=== PATIENT | female | born 1950 | race Caucasian/White ===

== ENCOUNTER 2025-07-23 07:46 | Day surgery (SDC) | payer MEDICARE, OTHER, MEDICAID, SELFPAY ==
--- OUTSIDE RECORDS SUMMARY | 2025-06-17 07:20 | XMS_ITS ---
Author Organization [facility] Address [address] [place] [address] Care Team Providers Care Basketball Player Name Role Phone Jasper Kruse Primary Care Provider Akshat Alcazar Jr Unavailable Allergies Allergen (clinical drug ingredient) Drug/Non Drug Allergy documented on EMR Reaction Allergy Type Onset Date Status sulfacetamide Sulfacetamide Sodium Unknown Drug Allergy Active REASON FOR VISIT Patient presents today for colitis Medications Medication SIG (Take, Route, Frequency, Duration) Notes Start Date End Date Status Omeprazole 20 MG 1 capsule 30 minutes before morning meal Orally twice a day Active Melatonin 3 MG 1 tablet at bedtime as needed Orally Once a day for 30 day(s) Active Restasis 0.05 % 1 drop into affected eye Ophthalmic Twice a day Active Atorvastatin Calcium 20 MG 1 tablet Oral ly Once a day for 30 day(s) Active Caltrate 600+D3 600-800 MG-UNIT 1 tablet with a meal Orally Once a day for 30 day(s) Active Isosorbide Mononitrate ER 30 MG 1 tablet in the morning Orally Once a day for 30 day(s) Active Farxiga 10 MG 1 tablet Orally Once a day for 30 day(s) Active Aspirin 81 81 MG 1 tablet Orally Once a day for 30 day(s) Active Losartan Potassium 25 MG 1 tablet Orally Once a day for 30 day(s) Active Mounjaro 7.5 MG/0.5ML as directed Subcutaneous Active Social History Tobacco Use: Social History Observation Description Date Details (start date - stop date) Never Smoker NA - NA Tobacco Use/Smoking Question Answer Notes Patient is a nonsmoker Alcohol Screen Question Answer Notes Did you have a drink containing alcohol in the p ast year? No Points 0 Interpretation Negative Problems Problem Type SNOMED Code ICD Code Onset Dates Problem Status W/U Status Risk Notes Problem Colitis (58936652) Colitis (K52.9) Active confirmed Problem Long-term current use of drug therapy (913390538) termination clerk (current) use of oral hypoglycemic drugs (Z79.84) Active confirmed Problem History of adenomatous polyp of colon (860421858) History of adenomatous polyp of colon (Z86.0101) Active confirmed Vital Signs Temperature 97.4 degrees Fahrenheit 06/17/20 25 Blood pressure systolic 001 mm Hg 06/17/20 25 Blood pressure diastolic 01 mm Hg 025 Heart Rate 68 /min 06/17/2025 Height 62 in 06/17/2025 Weight 127.2 lbs 06/17/2025 BMI 23.26 kg/m2 06/17/2025 Encounters Encounter Location Date Provider Diagnosis [facility] [address] [place] [address] 06/17/2025 Akshat Mi Jr Gastroesophageal reflux disease without esophagitis K21.9 ; Colitis K52.9 ; termination clerk (current) use of oral hypoglycemic drugs Z79.84 and History of adenomatous polyp of colon Z86.0101 Assessments Encounter Date Diagnosis (ICD Code) Assessment Notes Treatment Notes Treatment Clinical Notes Section Notes 06/17/2025 Gastroesophageal reflux disease without esophagitis (ICD-10 - K21.9) We discussed her symptoms today. We recommended she complete her antibiotic therapy as prescribed. We reviewed her CAT scan results. We discussed further evaluation of her upper and lower GI symptoms. She will have upper endoscopy and colonoscopy. She is aware of risks and benefits and agrees to proceed. Aspirin and Mounjaro will be stopped 1 week before the procedure. She will stop Farxiga 3 days before the procedure.Rebeka valdez's visit was 30 minutes. 06/17/2025 Colitis (ICD-10 - K52.9) We discussed her symptoms today. We recommended she complete her antibiotic therapy as prescribed. We reviewed her CAT scan results. We discussed further evaluation of her upper and lower GI symptoms. She will have upper endoscopy and colonoscopy. She is aware of risks and benefits and agrees to proceed. Aspirin and Mounjaro will be stopped 1 week before the procedure. She will stop Farxiga 3 days before the procedure.Rebeka valdez's visit was 30 minutes. 06/17/2025 termination clerk (current) use of oral hypoglycemic drugs (ICD-10 - Z79.84) We discussed her symptoms today. We recommended she complete her antibiotic therapy as prescribed. We reviewed her CAT scan results. We discussed further evaluation of her upper and lower GI symptoms. She will have upper endoscopy and colonoscopy. She is aware of risks and benefits and agrees to proceed. Aspirin and Mounjaro will be stopped 1 week before the procedure. She will stop Farxiga 3 days before the procedure.Rebeka valdez's visit was 30 minutes. 06/17/2025 History of adenomatous polyp of colon (ICD-10 - Z86.0101) We discussed her symptoms today. We recommended she complete her antibiotic therapy as prescribed. We reviewed her CAT scan results. We discussed further evaluation of her upper and lower GI symptoms. She will have upper endoscopy and colonoscopy. She is aware of risks and benefits and agrees to proceed. Aspirin and Mounjaro will be stopped 1 week before the procedure. She will stop Farxiga 3 days before the procedure.Rebeka valdez's visit was 30 minutes. Plan Of Treatment Future Test Test Name Order Date UPPER GI ENDOSCOPY 06/17/2025 COLONOSCOPY 06/17/2025 Next Appt Details Follow Up: 1 Year, Reason: Provider Name:Akshat meng , 07/23/2025 09:20:00 AM, [address] [place] [address], [id number], Progress Notes * BOOGIE FLOREZJIMOB: (75 yo F)Acc No.[id number]:06/17/2025 Progress Notes Patient: BOOGIE SIMENTALARMOND Provider: Demetrio Mi MD :1950 A ge:75 Y S ex:Female Date:06/17/2025 Address:[address] [place], [place] [id number] Pcp:Jasper Kruse Subjective: * Chief Complaints: * 1 . Patient presents today for colitis. * HPI: N ew symptom(s): Lashanda is a pleasant 75-year-old woman seen today in follow-up. She was last seen in July of last year for follow-up of reflux disease, elevated LFTs, and fatty liver. She was doing well until earlier last month when she developed epigastric pain with nausea and vomiting as well as diarrhea. She also had a fever. She reports some rectal bleeding with the diarrhea. She denies any recent travel, suspect food ingestions, or ill contacts. She was seen in the emergency department at [place] on June 07. She was diagnosed with descending colitis. Cipro and Flagyl were prescribed, and she is finishing these. She was also seen at [facility] for recurrent symptoms and treated symptomatically. She denies any prior history of colitis. Her last colonoscopy in 2000 was remarkable for tubular adenoma and 5-year follow-up was recommended. We reviewed this today. She has also had some upper GI symptoms despite omeprazole 20 mg daily with a raw feeling in the throat area. ENT evaluation was done and records are not available. * Medical History: D iabetes type 2, Fatty liver, Hypertension, ANA/CPAP, Brain aneurysm, Gastroesophageal reflux disease, EGD 12/15/20, no Ramsey's esophagus or H. pylori., Colonoscopy 12/15/20, tubular adenoma, five-year followup, Coronary artery disease, noncritical, medical management. * Surgical History: c ryosurgery , urethral sling , augmentation mammoplasty . * Hospitalization/Major Diagno stic Procedure: D enies Past Hospitalization. * Family History: F ather: , diagnosed with Heart disease. M other: , diagnosed with Diabetes. S iblings: sister breast cancer, diagnosed with Diabetes, Heart disease. no known hx of colon cancer. No family history of liver cancer. * Social History: T obacco Use: T obacco Use/Smoking P atient is a n onsmoker. D rugs/Alcohol: A lcohol Screen D id you have a drink containing alcohol in the past year? N o, P oints 0 , I nterpretation N egative. M iscellaneous: M arital status: . Occupation: retired. * Medications: T aking Aspirin 81 81 MG Tablet Delayed Release 1 tablet Orally Once a day , Taking Losartan Potassium 25 MG Tablet 1 tablet Orally Once a day , Taking Isosorbide Mononitrate ER 30 MG Tablet Extended Release 24 Hour 1 tablet in the morning Orally Once a day , Taking Farxiga 10 MG Tablet 1 tablet Orally Once a day , Taking Mounjaro 7.5 MG/0.5ML Solution Pen-injector as directed Subcutaneous , Taking Caltrate 600+D3 600-800 MG-UNIT Tablet 1 tablet with a meal Orally Once a day , Taking Restasis 0.05 % Emulsion 1 drop into affected eye Ophthalmic Twice a day , Taking Atorvastatin Calcium 20 MG Tablet 1 tablet Orally Once a day , Taking Omeprazole 20 MG Capsule Delayed Release 1 capsule 30 minutes before morning meal Orally twice a day , Taking Melatonin 3 MG Tablet 1 tablet at bedtime as needed Orally Once a day , Medication List reviewed and reconciled with the patient * Allergies: S ulfacetamide Sodium. Objective: * Vitals: W t:127.2lbs, Ht: 62 in, BMI: 23.26 Index, BP:001/01mm Hg, HR:68/min, Temp:97.4, Wt-k.7. * Examination: G eneral Examination: O n examination today, she appears well. Skin is anicteric. Lungs are clear. Heart shows a regular rate and rhythm. Abdomen is soft without focal masses or tenderness. Extremities are without edema. Assessment: * Assessment: 1. G astroesophageal reflux disease without esophagitis - K21.9 (Primary) 2 .?Colitis - K52.9 3 . L ericka term (current) use of oral hypoglycemic drugs - Z79.84 4 . H istory of adenomatous polyp of colon - Z86.0101 We discussed her symptoms to day. We recommended she complete her antibiotic therapy as prescribed. We reviewed her CAT scan results. We discussed further evaluation of her upper and lower GI symptoms. She will have upper endoscopy and colonoscopy. She is aware of risks and benefits and agrees to proceed. Aspirin and Mounjaro will be stopped 1 week before the procedure. She will stop Farxiga 3 days before the procedure.Today's visit was 30 minutes. Plan: * Treatment: ?Procedure: COLONOSCOPY (Ordered for 06/17/2025)* sched for 07/23/25 at 9:20 a mmacmirlax 2.?Colitis?Procedure: UPPER GI ENDOSCOPY (Ordered for 06/17/2025)* sched for 07/23/25 at 9:20 a mma ?Procedure: COLONOSCOPY (Ordered for 06/17/2025)* sched for 07/23/25 at 9:20 a mmacmirlax * Procedure Codes: 3 017F COLORECTAL CA SCREEN DOC REV, G9903 Pt scrn tbco id as non user, G9744 PATIENT NOT ELIG D/T ACTIVE DX HTN * Follow Up: 1 Year * * Sign off status: Completed true * Provider: Demetrio Mi MD Date: 0 06/17/2025 Generated for Printi ng/Fajohnathong/eTransmitting on: 0 06/19/2025 04:37 PM EDT History and Physical Notes * HPI (History of Present Illness) Category Sub-Category Detail Notes Category Not es New symptom(s) Lashanda is a pleasant 75-year-old woman seen today in follow-up. She was last seen in July of last year for follow-up of reflux disease, elevated LFTs, and fatty liver. She was doing well until earlier last month when she developed epigastric pain with nausea and vomiting as well as diarrhea. She also had a fever. She reports some rectal bleeding with the diarrhea. She denies any recent travel, suspect food ingestions, or ill contacts. She was seen in the emergency department at [place] on June 07. She was diagnosed with descending colitis. Cipro and Flagyl were prescribed, and she is finishing these. She was also seen at [facility] for recurrent symptoms and treated symptomatically. She denies any prior history of colitis. Her last colonoscopy in 2000 was remarkable for tubular adenoma and 5-year follow-up was recommended. We reviewed this today. She has also had some upper GI symptoms despite omeprazole 20 mg daily with a raw feeling in the throat area. ENT evaluation was done and records are not available. Examination Category Sub-Category Detail Notes Category Not es General Examination On exami nation today, she appears well. Skin is anicteric. Lungs are clear. Heart shows a regular rate and rhythm. Abdomen is soft without focal masses or tenderness. Extremities are without edema.
--- OUTSIDE RECORDS SUMMARY | 2025-06-19 16:37 | XMS_ITS | Patient Health Record ---
Author Organization [facility] Address [address] [place] [phone] Care Team Providers Care Nursing Consultant Name Role Phone Jasper Kruse Primary Care Provider Akshat Alcazar Jr Unavailable Allergies Allergen (clinical drug ingredient) Drug/Non Drug Allergy documented on EMR Reaction Allergy Type Onset Date Status sulfacetamide Sulfacetamide Sodium Unknown Drug Allergy Active Reason For Referral No Information Medications Medication SIG (Take, Route, Frequency, Duration) Notes Start Date End Date Status Isosorbide Mononitrate ER 30 MG 1 tablet in the morning Orally Once a day for 30 day(s) Active Farxiga 10 MG 1 tablet Orally Once a day for 30 day(s) Active Aspirin 81 81 MG 1 tablet Orally Once a day for 30 day(s) Active Losartan Potassium 25 MG 1 tablet Orally Once a day for 30 day(s) Active Omeprazole 20 MG 1 capsule 30 minutes [...] Mounjaro 7.5 MG/0.5ML as directed Subcutaneous Active Caltrate 600+D3 600-800 MG-UNIT 1 tablet with a meal Orally Once a day for 30 day(s) Active Immunizations Vaccine Route Administration Date Status Comme nts Influenza Unknown 07/10/2020 Administered Influenza Unknown 08/06/2021 Administered Influenza Unknown 07/27/2022 Administered Influenza Unknown 07/16/2024 Refused Social History Tobacco Use: Social History Observation [...] Problem Status W/U Status Risk Notes Problem 729369158 Elevated LFTs (R79.89) Active confirmed Problem 978491155 Gastroesophageal reflux disease without esophagitis (K21.9) Active confirmed Problem 759872302 Fatty liver (K76.0) Active confirmed Problem Colitis (95422185) Colitis (K52.9) Active confirmed Problem 072209671 Abnormal finding s in stool (R19.5) Active confirmed Problem 514470408 Abdominal pain, left upper quadrant (R10.12) Active confirmed Problem Long-term current use of drug therapy (750068747) intermediate (current) use of oral hypoglycemic drugs (Z79.84) Active confirmed Problem History of adenomatous polyp of colon (058127294) History of adenomatous polyp of colon (Z86.0101) Active confirmed Vital Signs Heart Rate 68 /min 06/17/2025 Temperature 97.4 degrees Fahrenheit 06/17/2025 Blood pressure diastolic 01 mm Hg 06/17/2025 Height 62 in 06/17/2025 Blood pressure systolic 001 mm Hg 06/17/2025 Weight 127.2 lbs 06/17/2025 BMI 23.26 kg/m2 06/17/2025 Encounters Encounter Location Date Provider Diagnosis [facility] [address] [place] [phone] 07/16/2024 Akshat Mi Jr Fatty liver K76.0 and Gastroesophageal reflux disease without esophagitis K21.9 [facility] [address] [place] [address] 06/17/2025 Akshat Mi Jr Gastroesophageal reflux disease without esophagitis K21.9 ; Colitis K52.9 ; intermediate (current) use of oral hypoglycemic drugs Z79.84 and History of adenomatous polyp of colon Z86.0101 [facility] [address] [place] [phone] 06/11/2025 Akshat Mi Jr Assessments Encounter Date Diagnosis (ICD Code) Assessment Notes Treatment Notes Treatment Clinical Notes Section Notes 07/16/2024 Gastroesophageal reflux disease without esophagitis (ICD-10 - K21.9) Currently, she is doing well. We discussed the natural history fatty liver today. We discussed diet, weight loss, and lifestyle modifications for control both fatty liver and gastroesophageal reflux disease. She currently appears to be doing quite well, and followup will be in one year. 07/16/2024 Fatty liver (ICD-10 - K76.0) Butter margarine and cooking oils material was printed Currently, she is doing well. We discussed the natural history fatty liver today. We discussed diet, weight loss, and lifestyle modifications for control both fatty liver and gastroesophageal reflux disease. She currently appears to be doing quite well, and followup will be in one year. 06/17/2025 Gastroesophageal reflux disease without esophagitis (ICD-10 - K21.9) We discussed he r symptoms today. We recommended she complete her [...] before the procedure.Today's visit was 30 minutes. 06/17/2025 Colitis (ICD-10 [...] before the procedure.Today's visit was 30 minutes. 06/17/2025 intermediate (current) use of oral hypoglycemic drugs (ICD-10 - Z79.84) We discussed h er symptoms today. We recommended she complete her [...] before the procedure.Today's visit was 30 minutes. 06/17/2025 History of [...] before the procedure.Today's visit was 30 minutes. Plan Of Treatment Pending Test Test Name Order Date LIVER PROFILE 11/23/2021 LIVER PROFILE 07/14/2022 LIVER PROFILE 01/21/2022 IRON + IBC (FE) 07/14/2022 FERRITIN 07/14/2022 CBC w/o DIFF 07/14/2022 PROTHROMBIN TIME (PT, INR) 07/14/2022 MITOCHONDRIAL AB 07/14/2022 SMOOTH MUSCLE ANTIBODIES 07/14/2022 MADELIN Reflex Titer and Pattern 07/14/2022 Hepatitis A,B,C Profile 07/14/2022 Future Test Test Name Order Date UPPER GI ENDOSCOPY 11/20/2020 COLONOSCOPY 11/20/2020 UPPER GI ENDOSCOPY 06/17/2025 COLONOSCOPY 06/17/2025 Next Appt Details Provider Name:Akshat meng Jr, 07/23/2025 09:20:00 AM, [address] [place] [address] , [place], [place], [id number], Insurance Providers Payer Name Payer Address Payer Phone Subscriber Number Group Number Insured Name Patient Relationship to Insured Coverage Start Date Coverage End Date MEDICARE OF [place] [address] [place] [address] [id number] JEREL FLOREZ Self - patient is the insured [employer] ([employer]) [address] [place] [address] [id number] JEREL FLOREZ Self - patient is the insured MEDICAID OF [place] [address] [place] [phone] [id number] JEREL FLOREZ Self - patient is the insured Medical (General) History Medical History History ICD Code diabetes type 2 fatty liver hypertension ANA/CPAP brain aneurysm Gastroesophageal reflux dise ase, EGD 12/15/20, no Ramsey's esophagus or H. pylori. Colonoscopy 12/15/20, tubular adenoma, fiv e-year followup Coronary artery disease, noncritical, me dical management Surgical History Surgery Date(Month/Year) augmentation mammoplasty urethral sling cryosurgery
--- OUTSIDE RECORDS SUMMARY | 2025-06-19 16:37 | XMS_ITS | Clinical Summary ---
Author Organization [facility] [place] [address] Care Team Providers Care Gallery Intern Name Role Phone Jimi Calderon MD Primary Care Provider [phone] Social History Tobacco Use Types Packs/Day Years Used Date Smoking Tobacco: Never Assessed Comments Unknown Sex and Gender Information Value Date Recorded Sex Assigned at Not on file Legal Sex Female 7:58 PM EST Gender Identity Not on file Sexual Orientation Not on file Plan of Treatment Health Maintenance Due Date Last Done Comments DTaP,Tdap,and Td Vaccines (1 - Tdap) 1969 Pneumococcal Vaccine: 50+ Ye ars (1 of 1 - PCV) 02/06/2000 Zoster Vaccines (1 of 2) 02/06/2000 Colorectal Cancer Screening: Colonoscopy 09/11/2022 Falls Risk Assessment 09/11/2022 Hepatitis C Screening 09/11/2022 Osteoporosis Screening (Bone Density Screening) 09/11/2022 Social Influencers of Health Screening 09/11/2022 COVID-19 Vaccine ( - 2023-2 5 season) 2024 Depression Screening 10/10/2024 RSV Immunization Adult Patie nts (1 - 1-dose 75+ series) 2025 Influenza Vaccine (#1) 2025 HIB Vaccines Aged Out No longer eligi ble based on patient's age to complete this topic HPV Vaccines Aged Out No longer eligi ble based on patient's age to complete this topic Hepatitis A Vaccines Aged Out No long er eligible based on patient's age to complete this topic Hepatitis B Vaccines Aged Out No long er eligible based on patient's age to complete this topic IPV Vaccines Aged Out No longer eligi ble based on patient's age to complete this topic MMR Vaccines Aged Out No longer eligi ble based on patient's age to complete this topic Meningococcal ACWY Vaccine Aged Out N o longer eligible based on patient's age to complete this topic Meningococcal B Vaccine Aged Out No l onger eligible based on patient's age to complete this topic RSV Immunization Patients Un eleno 20 months Aged Out No longer eligible b ased on patient's age to complete this topic Varicella Vaccines Aged Out No longer eligible based on patient's age to complete this topic Care Teams Gallery Intern Relationship Specialty Start Date End Date Jimi Calderon MD PCP - General Internal Medicine 03/06/19
--- OUTSIDE RECORDS SUMMARY | 2025-06-19 16:37 | XMS_ITS | Patient Health Record ---
Author Organization [facility] Address [address] [place] [address] Care Team Providers Care Transcription Typist Name Role Phone Ludmila Blake Primary Care Provider Manuel Leal Unavailable [phone] Allergies Allergen (clinical drug ingredient) Drug/Non Drug Allergy documented on EMR Reaction Allergy Type Onset Date Status sulfa itchiness Drug Allergy Active Reason For Referral No Information Medications Medication SIG (Take, Route, Frequency, Duration) Notes Start Date End Date Status Centrum Orally 05/27/2014 Active Omeprazole 20 MG TAKE ONE CAPSULE BY MOUTH EVERY DAY Oral; Duration: 90 Active Caltrate 600+D 600-400 MG-UNIT 1 tablet with food Orally Once a day 05/27/2014 Active Social History Tobacco use other than smoking: Question Answer Notes Are you an other tobacco user? No Problems Problem Type SNOMED Code ICD Code Onset Dates Problem Status W/U Status Risk Notes Problem Tibialis tendinitis (99491982) Posterior Tibial Tendonitis (726.72) Active confirmed Problem Arthralgia (56960827) Arthralgia (719.40) Active confirmed Problem Disorder of joint of ankle and/or foot (493259268) Arthritis - Degenerative (719.97) Active confirmed Problem Hammer toe (224497565) Hammer toe (735.4) Active confirmed Problem Metatarsalgia (67385622) Metatarsalgia (726.70) Active confirmed Problem Plantar fasciitis (529236942) Plantar Fasciitis (728.71) Active confirmed Plan Of Treatment No Information Insurance Providers Payer Name Payer Address Payer Phone Subscriber Number Group Number Insured Name Patient Relationship to Insured Coverage Start Date Coverage End Date [facility] [address] [place] [id number] Lashanda Valle Self - patient is the insured Medical (General) History Medical History History ICD Code Liver disease Osteopenia Reflux Chicken pox Surgical History Surgery Date(Month/Year) Pt states she has had multiple sx and do es not wish to list them.
[2025-07-18 13:28] VITALS: BMI 23.2
[2025-07-23 08:16] VITALS: BP 126/67; PULSE 72; RESP 16; TEMP 36.3; O2SAT 97; BMI 21.9
[2025-07-23] MEDS: Lactated Ringers 1,000 ML 100 ML IVCONT (08:18)
--- NOTE | 2025-07-23 08:20 | HO.ANESPROP2 ---
Documented by User: Velia Shaw NP 07/19/25 09:21 HPI - Anesthesia Eval Consult details Narrative: 75yo F for Upper Endoscopy and Colonoscopy Summer 2024 - eval with ENT for throat swelling, ? angioedema r/t losartan. T/C to patient 07/19/25: Denies ever having throat swelling, only irritation. No difficulties breathing or swallowing. Has never required ER/hospital. Anesthesia Pre-Procedure Meds Is the patient on any of the following meds?: GLP1/DPP4 and SGLT2 Inhib PMFSH Active Problems Active Problems: All Active Problems Diabetes (Acute) Past Medical History Medical History (Updated 07/18/25 @ 12:44 by Ela Kruse, RN) CAD (coronary artery disease) Diabetes Peripheral neuropathy Fatty liver Heme + stool GERD (gastroesophageal reflux disease) Pre-diabetes Brain aneurysm ANA on CPAP Elevated cholesterol HTN (hypertension) Family History Family History (System 12/13/24 @ 10:13 by Fani Jo) Daughter Celiac disease Surgical History Surgical History (Updated 07/18/25 @ 12:44 by Ela Kruse RN) History of esophagogastroduodenoscopy (EGD) History of cryosurgery History of augmentation mammoplasty History of pubovaginal sling Hx of colonoscopy Social History Social History (System 12/13/24 @ 10:13 by Fani Jo) Alcohol intake: never Patient Tobacco Use Status: Never used Tobacco Use of substances other than those prescribed or required for medical reasons: No Advance Directives: No Advance Directives Information Provided: Yes Meds Allergies Allergy/AdvReac Type Severity Reaction Status Date / Time Sulfa (Sulfonamide Allergy Itching Verified 12/13/24 10:13 Antibiotics) Home Medications ?Medication ?Instructions ?Recorded ?Confirmed ?Last Taken ?Type atorvastatin 20 mg tablet 1 tab PO DAILY 12/04/20 07/18/25 Unknown History melatonin 10 mg capsule 10 mg PO BEDTIME 12/04/20 07/18/25 Unknown History omeprazole 20 mg capsule,delayed 1 cap PO BID 12/04/20 07/18/25 Unknown History release aspirin 81 mg tablet,delayed 81 mg PO DAILY 07/18/25 07/18/25 Unknown History release calcium 600 mg (as carbonate)-vit 1 tab PO DAILY 07/18/25 07/18/25 Unknown History D3 20 mcg (800 unit) chewable tablet (Caltrate plus D) cyclosporine 0.05 % eye drops in a 1 drp ophthalmic (eye) BID 07/18/25 07/18/25 Unknown History dropperette (Restasis) dapagliflozin propanediol 10 mg 10 mg PO DAILY 07/18/25 07/18/25 Unknown History tablet (Farxiga) isosorbide mononitrate 30 mg 30 mg PO QAM 07/18/25 07/18/25 Unknown History tablet,extended release 24 hr losartan 25 mg tablet 25 mg PO DAILY 07/18/25 07/18/25 Unknown History melatonin 3 mg tablet 3 mg PO BEDTIME PRN Insomnia 07/18/25 07/18/25 Unknown History tirzepatide 7.5 mg/0.5 mL 1 subcut QWEEK 07/18/25 Unknown History subcutaneous pen injector (Mounjaro) Exam Height,Weight and Vital Signs: Height 5 ft 2 in Weight 57.606 kg Assessment and Plan Assessment Anesthesia Assessment: Chart Reviewed Documented by User: Eileen Hooker DO 07/23/25 08:22 HPI - Anesthesia Eval Anesthesia Pre-Procedure Meds Is the patient on any of the following meds?: GLP1/DPP4 and SGLT2 Inhib PMFSH Past Medical History Medical History (Updated 07/18/25 @ 12:44 by Ela Kruse RN) CAD (coronary artery disease) Diabetes Peripheral neuropathy Fatty liver Heme + stool GERD (gastroesophageal reflux disease) Pre-diabetes Brain aneurysm ANA on CPAP Elevated cholesterol HTN (hypertension) Family History Family History (System 12/13/24 @ 10:13 by Fani Jo) Daughter Celiac disease Family history of problems with anesthesia: No Surgical History Surgical History (Updated 07/18/25 @ 12:44 by Ela Kruse, YVONNE) History of esophagogastroduodenoscopy (EGD) History of cryosurgery History of augmentation mammoplasty History of pubovaginal sling Hx of colonoscopy History of Problems with Anesthesia: No Social History Social History (System 12/13/24 @ 10:13 by Fani Jo) Alcohol intake: never Patient Tobacco Use Status: Never used Tobacco Use of substances other than those prescribed or required for medical reasons: No Advance Directives: No Advance Directives Information Provided: Yes Meds Allergies Allergy/AdvReac Type Severity Reaction Status Date / Time Sulfa (Sulfonamide Allergy Itching Verified 12/13/24 10:13 Antibiotics) Home Medications ?Medication ?Instructions ?Recorded ?Confirmed ?Last Taken ?Type atorvastatin 20 mg tablet 1 tab PO DAILY 12/04/20 07/18/25 Unknown History melatonin 10 mg capsule 10 mg PO BEDTIME 12/04/20 07/18/25 Unknown History omeprazole 20 mg capsule,delayed 1 cap PO BID 12/04/20 07/18/25 Unknown History release aspirin 81 mg tablet,delayed 81 mg PO DAILY 07/18/25 07/18/25 Unknown History release calcium 600 mg (as carbonate)-vit 1 tab PO DAILY 07/18/25 07/18/25 Unknown History D3 20 mcg (800 unit) chewable tablet (Caltrate plus D) cyclosporine 0.05 % eye drops in a 1 drp ophthalmic (eye) BID 07/18/25 07/18/25 Unknown History dropperette (Restasis) dapagliflozin propanediol 10 mg 10 mg PO DAILY 07/18/25 07/18/25 Unknown History tablet (Farxiga) isosorbide mononitrate 30 mg 30 mg PO QAM 07/18/25 07/18/25 Unknown History tablet,extended release 24 hr losartan 25 mg tablet 25 mg PO DAILY 07/18/25 07/18/25 Unknown History melatonin 3 mg tablet 3 mg PO BEDTIME PRN Insomnia 07/18/25 07/18/25 Unknown History tirzepatide 7.5 mg/0.5 mL 1 subcut QWEEK 07/18/25 Unknown History subcutaneous pen injector (Mounjaro) Exam Exam Date and Time: 07/23/25 0819 Height,Weight and Vital Signs: Height 5 ft 2 in Weight 57.606 kg Vital Signs Temperature 97.4 F 07/23/25 08:16 Pulse Rate 72 07/23/25 08:16 Respiratory Rate 16 07/23/25 08:16 Blood Pressure 126/67 07/23/25 08:16 Pulse Oximetry 97 07/23/25 08:16 Oxygen Delivery Method Room Air 07/23/25 08:16 Temperature 97.4 F 07/23/25 08:16 Pulse Rate 72 07/23/25 08:16 Respiratory Rate 16 07/23/25 08:16 Blood Pressure 126/67 07/23/25 08:16 Pulse Oximetry 97 07/23/25 08:16 Oxygen Delivery Method Room Air 07/23/25 08:16 Airway Mallampati Class: I TM Dist: >3cm Neck ROM: Full Loose/Missing/Broken Teeth: No (patient denies any loose or broken teeth) Heart: S1S2 Lungs: CTAB Assessment and Plan Assessment Anesthesia Assessment: Anesthesia Plan Discussed and Chart Reviewed Final Anesthetic Review Family History of Problems with Anesthesia: No History of Problems with Anesthesia: No NPO: Yes ASA Class: II Final Preanesthetic Review: No Changes in Pt Med Stat, Meds/Allgs Chart Reviewed, Consent Obtained/Reviewed and Anes Risks/Benef Reviewed Patient Risk: Low Procedure Risk: Low Anesthetic Plan Anesthetic Plan: MAC: and Agree w/ Assess. and Plan Disposition: Standard PACU
--- NOTE | 2025-07-23 08:55 | MHC.SHP ---
Pre-Procedural Eval Section A - 24 Hr Update-Section A only Date of Service: 07/23/25 Section B - Complete if H&P > 30 days Chief Complaint: gerd,Noninfective gastroenteritis and colitis, Details of Present Illness: see H&P no chANGES Relevant Family History (Specify if Yes): No Relevant Social History: None Present Medications: see Short Stay Collaborative assessment Medical History: No relevant PMH History of Previous Operations: No relevant previous surgery Allergies: Allergies Allergy/AdvReac Type Severity Reaction Status Date / Time Sulfa (Sulfonamide Allergy Itching Verified 12/13/24 10:13 Antibiotics) Review of Systems Sugical H&P ROS: Negative: Constitution, Cardiovascular, Respiratory, Neurological, Psychiatric, Hem-Onc, Allergic/Immunologic, Gastrointestinal, Genitourinary, Musculoskeletal, Integumentary, Endocrine and Eyes/Ears/Nose/Throat Exam Surgical H&P Exam: Normal: HEENT, Normal: Heart, Normal: Lungs, Normal: Extremities, Normal: Abdomen, Normal: Skin and Normal: Neurological Plan Diagnosis/Plan: Unchanged I have reviewed the history and physical and performed a pertinent physical examination on my patient. No changes have occurred unless specified. Time Spent With Patient Time: Total time managing care of this patient today ____ minutes.
[2025-07-23 09:00] LABS: Glucose, Whole Blood 94 mg/dL (60-115)
[2025-07-23 09:36] VITALS: BP 124/70; PULSE 68; RESP 16; TEMP 36.9; O2SAT 96
[2025-07-23 09:51] VITALS: BP 146/75; PULSE 74; RESP 18; TEMP 36.4; O2SAT 96
--- NOTE | 2025-07-23 10:54 | OP_ITS ---
DATE OF SERVICE: 07/23/2025 SURGEON: Akshat Mi MD INDICATIONS: 1. Gastroesophageal reflux disease without esophagitis. 2. Colitis. PREOPERATIVE DIAGNOSIS: POSTOPERATIVE DIAGNOSIS: PROCEDURE PERFORMED: Upper endoscopy with biopsy, colonoscopy to the terminal ileum with biopsy. ESTIMATED BLOOD LOSS: COMPLICATIONS: ANESTHESIA: Monitored anesthesia care. ASSISTANTS: SPECIMENS: DESCRIPTION OF PROCEDURE: A history and physical was performed. The risks and benefits of the procedure were explained to the patient, and informed consent was obtained. The patient was placed in the left lateral decubitus position. The Olympus video gastroscope was introduced into the esophagus, stomach, and duodenum. Examination was performed. The scope was removed. She was repositioned for colonoscopy. A digital rectal exam was performed and was found to be normal. The Olympus pediatric video colonoscope was introduced into the rectum and advanced to the cecum. The cecum was identified by transillumination, palpation, and identification of ileocecal valve. Examination was performed. The scope was removed. She tolerated the procedure well and was returned to the recovery area in stable condition. FINDINGS: Upper endoscopy: 1. Esophagus: The esophagus showed an irregular EG junction. There were no mass, lesions. Biopsies were obtained from the EG junction. 2. Stomach: The stomach showed no evidence of masses or ulcers. Antral biopsies were obtained to evaluate for H pylori. 3. Duodenum: The bulb and 2nd portion were normal. Colonoscopy: The terminal ileum was briefly examined and appeared normal. The visualized colonic mucosa was normal. The quality of the prep was good. No polyps were identified. Retroflexed examination showed some small internal hemorrhoids. IMPRESSION: 1. Gastroesophageal reflux disease. 2. Normal colonoscopy. RECOMMENDATION: 1. Follow up as needed. 2. Follow up the biopsy results. 3. Repeat colonoscopy is recommended in 10 years for average-risk individuals. This is optional after age 75. MD LAURITA Winters/REA / [id number] MTDD
== END 2025-07-23 10:10 | disposition home or self-care (01) ==
PROVIDERS: PCP Internal Medicine; Visit Provider Internal Medicine Gastroenterology
PROC: (CPT 45378; principal; 2025-07-23 09:20)
DX: Z12.11 Encounter for screening for malignant neoplasm of colon (principal); K21.9 Gastro-esophageal reflux disease without esophagitis; K52.9 Noninfective gastroenteritis and colitis, unspecified; Z86.0101 Personal history of adenomatous and serrated colon polyps; E11.9 Type 2 diabetes mellitus without complications; Z79.84 Long term (current) use of oral hypoglycemic drugs
CPT/HCPCS: 45378; 43239; 82947; 88305; 88313; 88342; J2003; J2704; J3010